=== PATIENT | female | born 1995 | race Caucasian/White ===

== ENCOUNTER 2019-08-25 08:53 | Emergency (ER) | payer MEDICAID ==
[~2019-08-25] VITALS: Ht 157.5 cm; Wt 72.6 kg
[2019-08-25 09:10] VITALS: BP_SYST 121
--- NOTE | 2019-08-25 09:15 | NUR ---
Patient presented to ER with flu symptoms. Patient A&Ox4, skin pink and warm, ambulatory to ER, pain 03/22, denies N/V/D. Patient states he has throat, headache & body aches x3 days.
--- NOTE | 2019-08-25 09:30 | NUR ---
Note ludmilaone in EDM - 08/25/19 at 1956 by LAVONNE Patient bib LACF C/O CHOKING episode and shaking. Patient A&Ox2, CAHTO, skin pink and warm, afebrile, respirations equal bilat, saturations >95%. Patient states he was eating breakfast and had a choking episode.
--- NOTE | 2019-08-25 10:00 | NUR ---
STANLEY Zamora at bedside examining patient.
--- NOTE | 2019-08-25 11:07 | NUR ---
Note undone in EDM - 08/25/19 at 1947 by MARILUZEDOSMANY Patient given written and verbal discharge instructions and verbalizes understanding. ER discussed with patient the results and treatment provided. Patient in stable condition. ID arm band removed. Rx of given. Patient educated on pain management and to follow up with PMD. Pain Scale 10/23 tolerable for patient . Opportunity for questions provided and answered.
--- NOTE | 2019-08-25 11:07 | NUR ---
Patient given written and verbal discharge instructions and verbalizes understanding. ER MD discussed with patient the results and treatment provided. Patient in stable condition. ID arm band removed. Rx of given. Patient educated on pain management and to follow up with PMD. Pain Scale 10/23 tolerable for patient . Opportunity for questions provided and answered.
[2019-08-25 11:08] VITALS: BP_SYST 121
== END 2019-08-25 11:07 | disposition home or self-care (01) ==
LOC: SED 08:53
DX: J11.1 Influenza due to unidentified influenza virus with other respiratory manifestations (principal); R11.10 Vomiting, unspecified; R19.7 Diarrhea, unspecified; F12.90 Cannabis use, unspecified, uncomplicated; Z88.0 Allergy status to penicillin
CPT/HCPCS: 36415; 86710; 99283